=== PATIENT | female | born 1985 | race Two or more races ===

== ENCOUNTER 2017-12-19 11:54 | Emergency (ER) | payer SELFPAY ==
[~2017-12-19] VITALS: Ht 157.5 cm; Wt 53.1 kg
--- NOTE | 2017-12-19 12:02 | NUR ---
patient to ed dt rectal pain x 2 weeks, worst today. Reported bright red bleeding, possibly dt hemorrhoids. Pt is [email or web address].[email or web address]
[2017-12-19 12:28] VITALS: BP 124/70
--- NOTE | 2017-12-19 12:29 | NUR ---
Patient discharged to home in stable condition. Written and verbal after care instructions given. Patient verbalizes understanding of instruction.
== END 2017-12-19 12:30 | disposition home or self-care (01) ==
LOC: ER 11:55
DX: K64.4 Residual hemorrhoidal skin tags (principal)
CPT/HCPCS: 99283; A4606; Z7610

== ENCOUNTER 2022-07-11 23:28 | Emergency (ER) | payer SELFPAY ==
[~2022-07-11] VITALS: Ht 167.6 cm; Wt 65.8 kg
--- NOTE | 2022-07-12 00:23 | NUR ---
LAC #18G S/L BLOOD COLLECTED AND SENT TO LAB
--- NOTE | 2022-07-12 00:23 | NUR ---
EMT AT PT'S BEDSIDE FOR EKG
[2022-07-12 00:43] LABS: BASOPHILS % (AUTO) 0.3 % (0.0-2.0); EOSINOPHILS % (AUTO) 0.6 % (0.0-6.0); HEMATOCRIT 42 % (33-45); HEMOGLOBIN 14.2 g/dL (11.5-14.8); LYMPHOCYTES # (AUTO) 2.1 K/uL (0.8-4.8); LYMPHOCYTES % (AUTO) 34.3 % (20.0-44.0); MEAN CORPUSCULAR HGB CONC 34 g/dl (31.0-36.0); MEAN CORPUSCULAR VOLUME 94 fL (82-100); MONOCYTES # (AUTO) 0.5 K/uL (0.1-1.30); MONOCYTES % (AUTO) 7.3 % (2.0-12.0); NEUTROPHILS # (AUTO) 3.6 K/uL (1.8-8.9); NEUTROPHILS % (AUTO) 57.5 % (43.0-81.0); PLATELET COUNT (AUTO) 318 K/uL (150-450); RED BLOOD CELL COUNT(AUTO) 4.46 MIL/uL (4.0-5.2); WHITE BLOOD COUNT (AUTO) 6.2 K/uL (4.3-11.0)
[2022-07-12 00:50] LABS: CALCIUM, SERUM 9.8 mg/dL (8.5-10.1); CARBON DIOXIDE 23 mmol/L (21-32); CHLORIDE 104 mmol/L (98-107); CREATININE 0.9 mg/dL (0.6-1.3); GLUCOSE 93 mg/dL (74-106); POTASSIUM 3.3 mmol/L (3.5-5.1); SODIUM SERUM 138 mmol/L (136-145); UREA NITROGEN, BLOOD 9 mg/dL (7-18)
--- NOTE | 2022-07-12 00:52 | NUR ---
[facility]IVER SIGNED BY PT
--- NOTE | 2022-07-12 00:53 | NUR ---
PT TAKEN FOR [facility]
[2022-07-12 00:56] LABS: ALANINE AMINOTRANSFERASE 30 U/L (12-78); ALBUMIN 4.9 g/dL (3.4-5.0); ALKALINE PHOSPHATASE 103 U/L (46-116); ASPARTATE AMINOTRANSFERASE 25 U/L (15-37); BILIRUBIN,DIRECT 0.2 mg/dL (0.0-0.2); BILIRUBIN,TOTAL 0.7 mg/dL (0.2-1.0)
[2022-07-12] MEDS ORDERED: KETOROLAC TROMETHAMINE INJ 30 MG/ML VIAL ONE (00:58)
[2022-07-12] MEDS ORDERED: KETOROLAC TROMETHAMINE INJ 30 MG/ML VIAL IV ONE (01:00)
[2022-07-12 01:09] LABS: D-DIMER 0.23 mg/L(FEU (0.17-0.50)
--- NOTE | 2022-07-12 01:20 | NUR ---
PT BACK FROM CT SCAN, RECONNECTED TO MONITOR
--- NOTE | 2022-07-12 01:47 | NUR ---
UPDATED [facility] [phone]
--- NOTE | 2022-07-12 02:41 | NUR ---
IV removed. Catheter intact and site benign. Pressure and 4x4 applied to site. No bleeding noted.
--- NOTE | 2022-07-12 02:47 | NUR ---
Patient discharged to home in stable condition. Written and verbal after care instructions given. Patient verbalizes understanding of instruction.
[2022-07-12 02:48] VITALS: BP 128/81
== END 2022-07-12 02:49 | disposition home or self-care (01) ==
LOC: ER 23:29
DX: R07.9 Chest pain, unspecified (principal); R53.1 Weakness; R51.9 Headache, unspecified
CPT/HCPCS: 99285; 96374; 70450; 71045; 93005; 85025; 80048; 80076; 85378; 36415; 84484; 85730; 83880; J1885

== ENCOUNTER 2023-09-29 19:28 | Inpatient (IN) | payer MEDICAID ==
[~2023-09-29] VITALS: Ht 152.4 cm; Wt 59.1 kg
[2023-09-29] MEDS ORDERED: KETOROLAC TROMETHAMINE INJ 30 MG/ML VIAL ONE ×2 (22:55→22:58)
[2023-09-29] MEDS ORDERED: methylPREDNISolone SOD SUCC 40 MG/ML VIAL ONE ×2 (22:56→22:58)
[2023-09-29] MEDS ORDERED: CYCLOBENZAPRINE 10 MG TABLET ONE ×2 (22:56→22:58)
[2023-09-29] MEDS: CYCLOBENZAPRINE 10 MG TABLET PO ONE (23:01)
[2023-09-29 23:02] LABS: BASOPHILS % (AUTO) 0.2 % (0.0-2.0); EOSINOPHILS # (AUTO) 0.1 K/uL (0.0-0.7); EOSINOPHILS % (AUTO) 1.4 % (0.0-6.0); HEMATOCRIT 41 % (33-45); HEMOGLOBIN 14.3 g/dL (11.5-14.8); LYMPHOCYTES # (AUTO) 2.8 K/uL (0.8-4.8); LYMPHOCYTES % (AUTO) 33.7 % (20.0-44.0); MEAN CORPUSCULAR HEMOGLOBIN 33 PG (26.0-33.0); MEAN CORPUSCULAR HGB CONC 35 g/dl (31.0-36.0); MEAN CORPUSCULAR VOLUME 96 fL (82-100); MONOCYTES # (AUTO) 0.5 K/uL (0.1-1.30); MONOCYTES % (AUTO) 6.3 % (2.0-12.0); NEUTROPHILS # (AUTO) 4.8 K/uL (1.8-8.9); NEUTROPHILS % (AUTO) 58.4 % (43.0-81.0); PLATELET COUNT (AUTO) 306 K/uL (150-450); RED BLOOD CELL COUNT(AUTO) 4.31 MIL/uL (4.0-5.2); RED CELL DISTRIBUTION WIDTH 12.9 % (11.5-15.0); WHITE BLOOD COUNT (AUTO) 8.3 K/uL (4.3-11.0)
[2023-09-29] MEDS: KETOROLAC TROMETHAMINE INJ 30 MG/ML VIAL IV ONE (23:14)
[2023-09-29] MEDS: methylPREDNISolone SOD SUCC 40 MG/ML VIAL IV ONE (23:14)
[2023-09-29 23:26] LABS: ERYTHROCYTE SEDIMENTATION RATE 6 MM/HR (0-20)
[2023-09-29 23:33] LABS: CALCIUM, SERUM 8.9 mg/dL (8.5-10.1); CARBON DIOXIDE 27 mmol/L (21-32); CHLORIDE 105 mmol/L (98-107); GLUCOSE 91 mg/dL (74-106); POTASSIUM 4.1 mmol/L (3.5-5.1); SODIUM SERUM 140 mmol/L (136-145); UREA NITROGEN, BLOOD 11 mg/dL (7-18)
[2023-09-29 23:36] LABS: C-REACTIVE PROTEIN < 0.20 mg/dL (0.0-0.30)
[2023-09-30] MEDS ORDERED: MORPHINE SULFATE INJ 2 MG/ML DISP.SYRIN IV PRN (04:30)
[2023-09-30] MEDS ORDERED: ONDANSETRON HCL/PF 4 MG/2 ML VIAL IVP PRN (04:30)
[2023-09-30] MEDS ORDERED: Z GUARD REMEDY 4 OZ OINT TP PRN (04:30)
[2023-09-30] MEDS ORDERED: ACETAMINOPHEN 325 MG TABLET PO PRN (04:30)
[2023-09-30] MEDS ORDERED: MORPHINE SULFATE INJ 4 MG/ML DISP.SYRIN ONE (04:46)
[2023-09-30] MEDS: MORPHINE SULFATE INJ 2 MG/ML DISP.SYRIN IV ONE (04:50)
[2023-09-30] MEDS ORDERED: dexaMETHasone SOD PHOSPHATE 1 ML ONE (05:39)
[2023-09-30] MEDS: dexaMETHasone SOD PHOSPHATE 10 MG/ML VIAL IV ONE (05:44)
[2023-09-30] MEDS: PANTOPRAZOLE 40 MG TABLET.DR PO SCH (07:30)
[2023-09-30] MEDS ORDERED: ACET-1951 PO (07:50)
[2023-09-30] MEDS ORDERED: HYDR-3642 PO (07:50)
[2023-09-30] MEDS ORDERED: IBUP-1957 PO (07:50)
[2023-09-30] MEDS ORDERED: MEDR150V IM (07:50)
[2023-09-30] MEDS ORDERED: PANTOPRAZOLE 40 MG TABLET.DR PO ONE (08:48)
[2023-09-30] MEDS ORDERED: ENOXAPARIN SODIUM 40 MG/0.4 ML DISP.SYRIN SQ ONE (08:51)
[2023-09-30] MEDS: ENOXAPARIN SODIUM 40 MG/0.4 ML DISP.SYRIN SQ SCH (08:57)
[2023-09-30 10:15] VITALS: BP 130/80; TEMP 98.8; O2SAT 96
[2023-09-30] MEDS: PREGABALIN 25 MG CAPSULE PO SCH (11:55)
[2023-09-30] MEDS: METHOCARBAMOL (500MG) 500 MG TABLET PO SCH (11:56)
[2023-09-30 16:00] VITALS: BP 128/76; TEMP 99.5; O2SAT 96
[2023-09-30 20:25] LABS: PREGNANCY TEST URINE QUAL NEGATIVE (NEGATIVE)
[2023-09-30] MEDS: dexaMETHasone SOD PHOSPHATE 4 MG/ML VIAL IV SCH (20:51)
[2023-09-30 21:11] VITALS: BP 148/81; TEMP 98.2; O2SAT 100
[2023-10-01 07:30] VITALS: BP 102/66; TEMP 98.9; O2SAT 96
[2023-10-01 07:58] LABS: HEMATOCRIT 38 % (33-45); HEMOGLOBIN 13.1 g/dL (11.5-14.8); LYMPHOCYTES # (AUTO) 1.2 K/uL (0.8-4.8); LYMPHOCYTES % (AUTO) 12.2 % (20.0-44.0); MEAN CORPUSCULAR HEMOGLOBIN 34 PG (26.0-33.0); MEAN CORPUSCULAR HGB CONC 35 g/dl (31.0-36.0); MEAN CORPUSCULAR VOLUME 97 fL (82-100); MONOCYTES # (AUTO) 0.5 K/uL (0.1-1.30); MONOCYTES % (AUTO) 5.5 % (2.0-12.0); NEUTROPHILS % (AUTO) 82.3 % (43.0-81.0); PLATELET COUNT (AUTO) 312 K/uL (150-450); RED CELL DISTRIBUTION WIDTH 13.2 % (11.5-15.0); WHITE BLOOD COUNT (AUTO) 9.7 K/uL (4.3-11.0)
[2023-10-01 08:22] LABS: CALCIUM, SERUM 8.9 mg/dL (8.5-10.1); CREATININE 0.8 mg/dL (0.6-1.3); MAGNESIUM 2.4 mg/dL (1.8-2.4); PHOSPHORUS 3.4 mg/dL (2.5-4.9); POTASSIUM 3.8 mmol/L (3.5-5.1)
[2023-10-01] MEDS ORDERED: GADOTERATE MEGLUMINE 5 MMOL/10 ML VIAL IV ONE (15:12)
[2023-10-01 16:00] VITALS: BP 113/67; TEMP 98.8; O2SAT 96
[2023-10-01 20:00] VITALS: BP 110/77; TEMP 99; O2SAT 98
[2023-10-02] MEDS ORDERED: OXYC-133 PO (12:39)
[2023-10-02] MEDS ORDERED: METH4TAB3 PO (12:39)
[2023-10-02] MEDS ORDERED: CYCL5TAB PO (12:39)
== END 2023-10-02 14:50 | disposition home or self-care (01) | DRG 347 ==
LOC: EDUNIT# 19:28 → ER 19:35 → TRANSITION 09-30 04:43 → MED 09-30 09:03
PROVIDERS: ADMIT Nurse Practitioner Family; ATTEND Internal Medicine
DX: M54.42 Lumbago with sciatica, left side (principal); E78.5 Hyperlipidemia, unspecified; M48.07 Spinal stenosis, lumbosacral region
CPT/HCPCS: 36415; 72131-TC; 72158-TC; 73564-TC; 73590-TC; 80048-TC; 83735-TC; 84100-TC; 84703-TC; 85025-TC; 85652-TC; 86140-TC; 93971-TC; 94799-TC; 97110-TC; 97116-TC; 97530-TC; A9575; G0378; J1100; J1650; J1885; J2270; J2920

== ENCOUNTER 2024-06-25 15:10 | Emergency (ER) | payer MEDICAID ==
[~2024-06-25] VITALS: Ht 149.9 cm; Wt 66.2 kg
[~2024-06-25 15:10] MED LIST: CYCL5TAB PO; HYDR-3642 PO; METH4TAB3 PO; OXYC-133 PO
[2024-06-25] MEDS ORDERED: METOCLOPRAMIDE HCL 10 MG/2 ML VIAL ONE (16:54)
[2024-06-25] MEDS ORDERED: ACETAMINOPHEN ES 500 MG TABLET ONE (16:54)
[2024-06-25] MEDS ORDERED: diphenhydrAMINE HCL 50 MG/ML VIAL ONE (16:54)
[2024-06-25] MEDS: METOCLOPRAMIDE HCL 10 MG/2 ML VIAL IV ONE (17:06)
[2024-06-25] MEDS: IV NS 0.9% 1,000 ML BAG IV ONE (17:06)
[2024-06-25] MEDS: diphenhydrAMINE HCL 50 MG/ML VIAL IV ONE (17:07)
[2024-06-25] MEDS: ACETAMINOPHEN ES 500 MG TABLET PO ONE (17:07)
[2024-06-25 19:25] VITALS: BP 122/69; TEMP 97.9; O2SAT 99
== END 2024-06-25 19:26 | disposition home or self-care (01) ==
LOC: ER 15:35
DX: R51.9 Headache, unspecified (principal); R20.2 Paresthesia of skin
CPT/HCPCS: 99284; 96374; 96361; 96375; J1200; J2765; J7030

== ENCOUNTER 2024-10-13 13:31 | Emergency (ER) | payer MEDICAID ==
[~2024-10-13] VITALS: Ht 147.3 cm; Wt 63.5 kg
[2024-10-13] MEDS ORDERED: METOCLOPRAMIDE HCL 10 MG/2 ML VIAL ONE (15:13)
[2024-10-13] MEDS ORDERED: ACETAMINOPHEN ES 500 MG TABLET ONE (15:13)
[2024-10-13] MEDS ORDERED: diphenhydrAMINE HCL 50 MG/ML VIAL ONE (15:13)
[2024-10-13] MEDS: METOCLOPRAMIDE HCL 10 MG/2 ML VIAL IV ONE (15:20)
[2024-10-13 15:24] LABS: BASOPHILS # (AUTO) 0.1 K/uL (0.0-0.2); BASOPHILS % (AUTO) 0.9 % (0.0-2.0); EOSINOPHILS % (AUTO) 0.2 % (0.0-6.0); HEMATOCRIT 39 % (33-45); HEMOGLOBIN 14.1 g/dL (11.5-14.8); LYMPHOCYTES # (AUTO) 1.7 K/uL (0.8-4.8); LYMPHOCYTES % (AUTO) 28.9 % (20.0-44.0); MEAN CORPUSCULAR HEMOGLOBIN 33 PG (26.0-33.0); MEAN CORPUSCULAR HGB CONC 36 g/dl (31.0-36.0); MEAN CORPUSCULAR VOLUME 92 fL (82-100); MONOCYTES # (AUTO) 0.4 K/uL (0.1-1.30); NEUTROPHILS # (AUTO) 3.8 K/uL (1.8-8.9); PLATELET COUNT (AUTO) 272 K/uL (150-450); RED BLOOD CELL COUNT(AUTO) 4.22 MIL/uL (4.0-5.2); RED CELL DISTRIBUTION WIDTH 12.8 % (11.5-15.0)
[2024-10-13] MEDS: diphenhydrAMINE HCL 50 MG/ML VIAL IV ONE (15:30)
[2024-10-13] MEDS: IV NS 0.9% 1,000 ML BAG IV ONE (15:32)
[2024-10-13] MEDS: ACETAMINOPHEN ES 500 MG TABLET PO ONE (15:32)
[2024-10-13 15:44] LABS: CALCIUM, SERUM 9.6 mg/dL (8.5-10.1); CREATININE 0.8 mg/dL (0.6-1.3); POTASSIUM 3.3 mmol/L (3.5-5.1)
[2024-10-13] MEDS ORDERED: KETOROLAC TROMETHAMINE 15 MG/ML VIAL ONE (17:14)
[2024-10-13] MEDS: KETOROLAC TROMETHAMINE 15 MG/ML VIAL IV ONE (17:15)
[2024-10-13 19:02] VITALS: BP 132/66; TEMP 98; O2SAT 98
== END 2024-10-13 19:02 | disposition home or self-care (01) ==
LOC: ER 13:31
DX: R51.9 Headache, unspecified (principal); R10.2 Pelvic and perineal pain; Z79.899 Other long term (current) drug therapy; Z98.1 Arthrodesis status
CPT/HCPCS: 99285; 96374; 70450; 96375; 96361; 85025; 80048; 36415; 84702; J1885; J1200; J2765; J7030